=== PATIENT | male | born 1965 | race Caucasian/White ===

== ENCOUNTER 2018-11-25 17:29 | Emergency (ER) | payer BC, OTHER ==
[2018-11-25 17:50] VITALS: BP 150/102
[2018-11-25] MEDS ORDERED: Penicillin G Benzathine 2.4MU* 2,400,000 UNITS/4 ML SYR IM ONE (18:33)
--- NOTE | 2018-11-25 18:36 | UC ---
Throat Pain/Nasal Jh HPI - HPI Summary HPI Summary: 52 y/o male presents to the urgent care requesting a Penicillin IM inj since he was Dx yesterday w/ syphilis. Pt reports he did STD's screening at the HIV clinic and he tested positive for GC and chlamydia 2 days ago and was given the prophylactic treatment for it. However he received a call yesterday from the clinic telling him to return to the clinic for syphilis tx. However he called today and they didn't have the nurse who can provide him w/ the inj. Pt also c/o today he developed mild sore throat and subjective low grade fever. Pain w/ swallowing is mild 4/10. Pt denies PETERS, dizziness, rash, visual changes, cough, SOB, chest pain, abdominal pain, N/V/D. - History of Current Complaint Chief Complaint: UCGU Stated Complaint: FEVER,SORE THROAT Time Seen by Provider: 11/25/18 18:16 Hx Obtained From: Patient Onset/Duration: Gradual Onset, Lasting Hours - 6hrs, Still Present Severity: Mild Pain Intensity: 3 - sore throat Pain Scale Used: 0-10 Numeric Cough: None Associated Signs & Symptoms: Positive: Nasal Discharge - clear, Fever - subjective low grade fever at home. Negative: Dysphagia, Wheezing, Rash - Epiglottits Risk Factors Epiglottis Risk Factors: Negative - Allergies/Home Medications Allergies/Adverse Reactions: Allergies Allergy/AdvReac Type Severity Reaction Status Date / Time No Known Allergies Allergy Verified 11/25/18 17:49 Home Medications: Home Medications Bictegrav/Emtricit/Tenofov Ala [Biktarvy 50-200-25 mg Tablet] 1 each PO DAILY [History Confirmed 11/25/18] DOXYcycline CAP(*) [DOXYcycline 100MG CAP(*)] 100 mg PO BID 11/25/18 [History Confirmed 11/25/18] PMH/Surg Hx/FS Hx/Imm Hx Previously Healthy: Yes Other History Of: HIV - Surgical History Surgical History: Yes Surgery Procedure, Year, and Place: RT KNEE MEDIAL MENISCUS. LEFT KNEE MEDIAL MENISCUS - Family History Known Family History: Positive: Hypertension - father - Social History Occupation: Employed Full-time Lives: With Family Alcohol Use: None Substance Use Type: Other Substance Use Comment - Amount & Last Used: METH Smoking Status (MU): Never Smoked Tobacco - Immunization History Most Recent Influenza Vaccination: UNSURE LAST TIME HE RECEIVED IT Most Recent Tetanus Shot: UTD ATLEAST FOR 10 YEARS Review of Systems All Other Systems Reviewed And Are Negative: Yes Constitutional: Positive: Fever - low grade fever Skin: Positive: Negative Eyes: Positive: Negative ENT: Positive: Sore Throat Respiratory: Positive: Negative Cardiovascular: Positive: Negative Gastrointestinal: Positive: Negative Genitourinary: Positive: Negative Motor: Positive: Negative Neurovascular: Positive: Negative Musculoskeletal: Positive: Negative Neurological: Positive: Negative Psychological: Positive: Negative Is Patient Immunocompromised?: No Physical Exam - Summary Physical Exam Summary: VITAL SIGNS: Reviewed. GENERAL: Patient is a well developed and nourished male who is sitting comfortable in the examining table. Patient is not in any acute respiratory distress. HEAD AND FACE: No signs of trauma. No ecchymosis, hematomas or skull depressions. No sinus tenderness. EYES: PERRLA, EOMI x 2, No injected conjunctiva, no nystagmus. No photophobia. EARS: Hearing grossly intact. Ear canals and tympanic membranes are within normal limits. MOUTH: Positive pharynx with erythema, no exudates, no palatal petechiae. NO B/ L tonsillar enlargement,. Uvula in midline. NECK: Supple, trachea is midline, Positive anterior cervical lymphadenopathy, no JVD, no carotid bruit, no c-spine tenderness, neck with full ROM. No meningeal signs, no Kernig's or brudzinskis signs. CHEST: Symmetric, no tenderness at palpation LUNGS: Clear to auscultation bilaterally. No wheezing or crackles. CVS: Regular rate and rhythm, S1 and S2 present, no murmurs or gallops appreciated. ABDOMEN: Soft, non-tender. No signs of distention. No rebound no guarding, and no masses palpated. Bowel sounds are normal. EXTREMITIES: FROM in all major joints, no edema, no cyanosis or clubbing. NEURO: Alert and oriented x 3. No acute neurological deficits. Speech is normal and follows commands. SKIN: Dry and warm Triage Information Reviewed: Yes Vital Signs: Initial Vital Signs Temp 97.6 F 11/25/18 17:45 Pulse 87 11/25/18 17:45 Resp 16 11/25/18 17:45 BP 150/102 11/25/18 17:45 Pulse Ox 100 11/25/18 17:45 Throat Pain/Nasal Course/Dx - Course Course Of Treatment: 52 y/o male presents to the urgent care requesting a Penicillin IM inj since he was Dx yesterday w/ syphilis. Pt reports he did STD's screening at the HIV clinic and he tested positive for GC and chlamydia 2 days ago and was given the prophylactic treatment for it. However he received a call yesterday from the clinic telling him to return to the clinic for syphilis tx. However he called today and they didn't have the nurse who can provide him w/ the inj. Pt also c/o today he developed mild sore throat and subjective low grade fever. Pain w/ swallowing is mild /10. Pt denies PETERS, dizziness, rash, visual changes, cough, SOB, chest pain, abdominal pain, N/V/D. Hx obtained. Rapid strep ordered , result: negative. Penicillin G IM inj ordered to Tx syphilis and applied by nurse. Pt tolerated well IM inj. Pt educated on STD's and recommended he should advised partner of the need to get prophylactic treatment or STD's screening. Pt probably w/ Viral pharyngitis today. Pt advised to take Rx ibuprofen PO to alleviates symptoms of pain and swelling. Advised on hand washing to avoid spreading. Pt advised to rest, eat well and avoid strenuous exercise. If symptoms do not improve or worsen advised to return to the urgent care or f/u with PCP for further evaluation and treatment. Strongly advised to finish the full course of Doxycycline to Tx Clamydia and f/u w/ his PCP in 3-4 weeks to make sure he is cleared of any STD's .Pt's BP is elevated today advised to decrease salt in diet, monitor BP and f/u with PCP for further management. D/C instructions explained. Pt understood and agreed w/ plan of care. - Differential Dx/Diagnosis Differential Diagnosis/HQI/PQRI: Influenza, Laryngitis, Peritonsillar Abscess, Pharyngitis, URI, Other - syphilis Provider Diagnosis: Acquired syphilis, Acute viral pharyngitis, Elevated BP without diagnosis of hypertension Discharge - Sign-Out/Discharge Documenting (check all that apply): Patient Departure - d/c home All imaging exams completed and their final reports reviewed: No Studies - Discharge Plan Condition: Stable Disposition: HOME Patient Education Materials: Syphilis (ED), Pharyngitis (ED) Referrals: [facility] [Outside] - 3 Days Anny DIGGS,[place] [Medical Doctor] - 1 Week Additional Instructions: 1- You were given Penicillin G IM inj today for treatment of your recently Dx Siphillis. Please f/u w/ your PCP or Dr Mccormick for further management on your syphilis 2-Please take ibuprofen PO q6-8hrs prn as instructed after meals to alleviate pain and swelling. Increase fluid intake, eat well, rest and avoid strenuous exercise 3-Continue taking Doxycycline PO for Tx for Chlamydia. Please notified your partners so they can get prophylactic treatment. 4-If symptoms of sore throat does not improve or worsen please return to the urgent care or f/u with your PCP for further evaluation and treatment. 5-Your BP is elevated today. Please take your BP medications and decrease salt in your diet, monitor BP and if it continues to be elevated please f/u with your PCP for further management. If you develop chest pain, dizziness, visual disturbances, SOB, or severe PETERS please go immediately to the ER for further management - Billing Disposition and Condition Condition: STABLE Disposition: Home - Attestation Statements Provider Attestation: I was available for consult. This patient was seen by the SHIVANI. The patient was not presented to, seen by, or examined by me. -Praful
== END 2018-11-25 19:36 | disposition home or self-care (01) ==
LOC: UCEAST 17:29
DX: A53.9 Syphilis, unspecified (principal); J02.8 Acute pharyngitis due to other specified organisms; R03.0 Elevated blood-pressure reading, without diagnosis of hypertension; R50.9 Fever, unspecified; A56.8 Sexually transmitted chlamydial infection of other sites; Z21 Asymptomatic human immunodeficiency virus [HIV] infection status
CPT/HCPCS: 87651; 96372; 99211; G0463; J0561